=== PATIENT | male | born 1985 | race Caucasian/White ===

== ENCOUNTER → 2020-10-23 08:58 | Outpatient (CLI) | payer OTHER, SELFPAY ==
[2020-10-23 13:44] LABS: COVID19 -Nasal RAPID Negative (Negative)
== END ==
PROVIDERS: PCP Family Medicine; Visit Provider Surgery
DX: Z01.812 Encounter for preprocedural laboratory examination (principal); Z20.822 Contact with and (suspected) exposure to COVID-19
CPT/HCPCS: 87635; C9803

== ENCOUNTER 2020-10-24 13:32 | Day surgery (SDC) | payer OTHER, SELFPAY ==
[2020-10-20 08:31] VITALS: BMI 33.3
--- NOTE | 2020-10-24 | PATH_ITS ---
[facility] Accession Number: [id number] . 01 Material submitted: . gallbladder - GALLBLADDER AND CONTENTS . 02 Diagnosis: Gallbladder, Cholecystectomy: Chronic cholecystitis with cholelithiasis. Negative for dysplasia and malignancy. [facility] 10/30/2020 1032 Local . 02 Electronically signed: . Marylin Roberts MD, Pathologist NPI- [id number] . 01 Gross description: . The specimen is received in formalin, labeled gallbladder and consists of a 9.0 x 2.5 x 2.0 cm previously disrupted gallbladder with a 0.2 cm in diameter cystic duct. The serosa is jo-pink to pink-purple and smooth. Opening reveals green viscous bile with multiple jo to jo-green bosselated choleliths ranging from 0.8-2.2 cm and measuring 5.5 x 4.0 x 2.0 cm in aggregate. The serosa is jo-pink and velvety, and the wall thickness measures 0.1 cm. [employer] sections are submitted to include the en face cystic duct margin (blue) in cassette A1. ([id number]) /[facility] 10/26/2020 1429 Local . 02 Pathologist provided ICD-10: K80.60 . 02 CPT . 067532 Performed at: [address] [facility] [address], [place], [place] [id number] MD Dilshad Torres MD Phone: [phone] Performed at: 02 [facility] [address] [place], [place] [id number] MD Marylin Roberts MD Phone: [phone]
[2020-10-24 14:08] VITALS: BP 130/79; PULSE 73; RESP 16; TEMP 36.7; O2SAT 99; BMI 32.0
[2020-10-24] MEDS: LACTATED RINGERS 1,000 ML 100 ML IV ×2 (14:17→16:50)
--- NOTE | 2020-10-24 14:35 | PM.PREOP ---
Pre-operative Note Interval Note History & Physical reviewed/Exam performed by Physician: Yes Changes to H&P: No
[2020-10-24] MEDS: CEFAZOLIN 2 GM/100 ML FROZ.PIGGY IV (15:12)
--- NOTE | 2020-10-24 15:38 | SUR.OPER ---
Supine on padded OR bed, head on pillow, safety belt at thigh, left arm padded and tucked at side. Right arm secured on padded arm oard <90 degrees abduction. Legs uncrossed. Padded footboard in place. Tape over blanket to secure lower legs.
[2020-10-24] MEDS: BUPIVACAINE 0.25% (PF) VIAL 30 ML INJ (15:43)
[2020-10-24 17:01] VITALS: BP 128/85; PULSE 91; RESP 14; TEMP 36.8; O2SAT 91
--- NOTE | 2020-10-24 17:02 | P.OP_ITS ---
Operative Date/Time/Diagnoses Date of procedure: 10/24/20 Time of procedure: 17:02 Pre-op diagnosis: Biliary colic Post-op diagnosis: same Procedure & Clinicians Procedure: Laparoscopic cholecystectomy Same procedure as scheduled: Yes Indications: Biliary colic Surgeon: Roderick Hanson Anesthesia Type: General Operative Notes Findings: Nonmobile stones lodged within the neck of the gallbladder. Specimen(s): other (Gallbladder) Procedure in detail: The patient was placed supine on the table and bilateral lower extremity compression devices were applied. Anesthesia was induced they were intubated with an endotracheal tube and received 2g of Ancef. A time-out was performed. They were prepped and draped in sterile fashion. An infraumbilical incision was made, the umbilical stalk was elevated and the fascia was sharply incised entering the abdomen atraumatically. A blunt tip 12mm balloon trocar was then inserted, pneumoperitoneum was established and inspection of the abdomen demonstrated no evidence of injury. They were placed head up and right side up and then a 11 mm port was placed high in the epigastrium and two 5mm in the right upper quadrant. The gallbladder was grasped by the fundus and retracted over the liver and retracted laterally by the infundibulum. There were nonmobile stones lodged within the neck the gallbladder. Using electrocautery the lateral plane between the gallbladder and the liver was opened towards the fundus. The gallbladder was then retracted laterally and the medial plane was developed in the same manner. With the gallbladder mobilized the bottom of the cystic plate was visualized. The hepatocystic triangle was meticulosly skeletonized using hook electrocautery of all fat and fibrous tissue from both the front and the back. Only two structures were then clearly seen entering the gallbladder the cystic duct and the cystic artery. With the critical view of safety fully established the c ystic duct was clipped twice proximally and once distally using the 10 mm hemo clipped applied under direct visualization and then sharply divided. The cystic artery was divided in the same fashion. The gallbladder was removed from the liver bed using electro cautery. The liver bed was then inspected for hemostasis . A noticed a small amount of ooze coming from the cystic artery stone which was subsequently isolated and then clipped again. Hemostasis was observed.. The abdomen was irrigated with sterile saline and inspection was made that showed the clips in good position. The specimen was removed using Endo-Catch. The abdomen was desufflated. The umbilical fascia was closed with 0 Vicryl in a [id number] fashion under direct visualization. Skin incisions were irrigated and closed with 4-0 Monocryl. 30 ml of 0.25% bupivacaine was infiltrated into the subcutaneous tissue of the incisions. The wounds were sealed with Dermabond. Patient emerged from anesthesia was extubat ed and transferred to recovery in stable condition. The sponge and instrument count at the end of the operation was correct. Complications: none Post-operative Condition: stable Disposition: same day surgery
[2020-10-24 17:06] VITALS: BP 123/76; PULSE 83; RESP 10; O2SAT 95
[2020-10-24 17:11] VITALS: BP 124/73; PULSE 80; RESP 14; O2SAT 98
[2020-10-24] MEDS: OXYCODONE/ACETAMINOPHEN 5/325 TABLET 1 TAB PO ×2 (17:33→18:03)
[2020-10-24] MEDS: ONDANSETRON 4 MG/2 ML INJ IV (17:34)
[2020-10-24 18:11] VITALS: BP 132/82; PULSE 72; RESP 14; TEMP 36.1; O2SAT 96
== END 2020-10-24 18:15 | disposition home or self-care (01) ==
PROVIDERS: PCP Family Medicine; Referring Provider Surgery; Visit Provider Surgery
PROC: 0FT44ZZ Resection of Gallbladder, Percutaneous Endoscopic Approach (ICD-10-PCS; CPT 47562; principal; 2020-10-24 14:45)
DX: K80.10 Calculus of gallbladder with chronic cholecystitis without obstruction (principal); E03.9 Hypothyroidism, unspecified
CPT/HCPCS: 47562; J0690; J1100; J1885; J2250; J2405; J2704; J3010